=== PATIENT | male | born 1960 | race Caucasian/White ===

== ENCOUNTER 2021-11-03 15:06 | Emergency (ER) | payer OTHER ==
[~2021-11-03] VITALS: Ht 177.8 cm; Wt 77.0 kg
[2021-11-03 18:04] LABS: URINE BILIRUBIN - DIPSTICK NEGATIVE (NEGATIVE); URINE BLOOD DIPSTICK LARGE (NEGATIVE); URINE COLOR BROWN; URINE GLUCOSE - DIPSTICK NEGATIVE (NEGATIVE); URINE KETONE NEGATIVE (NEGATIVE); URINE LEUK ESTERASE NEGATIVE (NEGATIVE); URINE PROTEIN - DIPSTICK TRACE mg/dL (NEG-TRACE); URINE SPECIFIC GRAVITY >=1.030; URINE UROBILINOGEN - DIPSTICK 0.2 E.U./dL (0.2)
[2021-11-03 18:05] LABS: URINE NITRITE - DIPSTICK NEGATIVE (Negative)
[2021-11-03 18:11] LABS: URINE RBC >100 RBC/hpf (0-5)
[2021-11-03 19:04] LABS: HEMATOCRIT 47.5 % (39.0-50.0); HEMOGLOBIN 15.9 g/dl (14.0-18.0); IMMATURE GRANULOCYTES 0.2 % (0.0-5.0); MEAN CORPUSCULAR HGB 33.2 pG CALC (26.0-32.0); MEAN CORPUSCULAR HGB CONC 33.5 g/dL CAL (32.0-36.0); NEUT# 2.81 thou/uL (1.82-7.42); RED BLOOD COUNT 4.79 mill/uL (4.70-6.10); RED CELL DISTRI WIDTH 12.8 % (11.5-15.5)
[2021-11-03 19:05] LABS: MEAN CELL VOLUME 99.2 fL CALC (80.0-100.0)
[2021-11-03 19:19] LABS: ALBUMIN 4.6 g/dL (3.2-5.0); ALKALINE PHOSPHATASE 82 u/l (38-126); ANION GAP 11 (6-22 (CALC)); BILIRUBIN, TOTAL 0.5 mg/dL (0.0-1.4); BUN 17 mg/dL (8-23); BUN/CREATININE RATIO 13 (12-20 (CALC)); CARBON DIOXIDE 27 mmol/l (22-30); CHLORIDE 105 mmol/l (95-108); CREATININE 1.2 mg/dL (0.7-1.3); GFR > 60 ML/MIN (>=60 (CALC)); GFR FOR AFR.AMER. > 60 ML/MIN (>=60 (CALC)); POTASSIUM 4.6 mmol/l (3.5-5.1); SGOT/AST 28 u/l (19-48); SODIUM 139 mmol/l (137-146); TOTAL PROTEIN 8.3 g/dL (6.3-8.2)
[2021-11-03 20:55] VITALS: BP 135/82
== END 2021-11-03 20:55 | disposition designated cancer center or children's hospital (05) | DRG 700 ==
LOC: ED 15:06
PROVIDERS: Emergency Medicine; Family Medicine
DX: N32.89 Other specified disorders of bladder (principal); R31.9 Hematuria, unspecified; I10 Essential (primary) hypertension; I25.2 Old myocardial infarction; B19.20 Unspecified viral hepatitis C without hepatic coma; Z21 Asymptomatic human immunodeficiency virus [HIV] infection status
CPT/HCPCS: Q9967

== ENCOUNTER 2021-12-22 12:58 | Emergency (ER) | payer OTHER ==
[~2021-12-22] VITALS: Ht 177.8 cm; Wt 84.0 kg
[2021-12-22 14:30] VITALS: BP 158/82
[2021-12-22 14:45] LABS: MEAN CORPUSCULAR HGB 31.4 pG CALC (26.0-32.0); MEAN CORPUSCULAR HGB CONC 33.8 g/dL CAL (32.0-36.0); NEUT# 3.57 thou/uL (1.82-7.42); RED BLOOD COUNT 2.39 mill/uL (4.70-6.10); RED CELL DISTRI WIDTH 12.1 % (11.5-15.5)
[2021-12-22 14:54] LABS: URINE BILIRUBIN - DIPSTICK NEGATIVE (NEGATIVE); URINE BLOOD DIPSTICK LARGE (NEGATIVE); URINE GLUCOSE - DIPSTICK NEGATIVE (NEGATIVE); URINE KETONE 15 mg/dL (NEGATIVE); URINE PROTEIN - DIPSTICK >=300 mg/dL (NEG-TRACE); URINE SPECIFIC GRAVITY 1.015
[2021-12-22 14:55] LABS: URINE COLOR RED; URINE LEUK ESTERASE SMALL (NEGATIVE); URINE NITRITE - DIPSTICK POSITIVE (Negative); URINE RBC TNTC RBC/hpf (0-5); URINE WBC 0-2 WBC/hpf (0-5)
[2021-12-22 14:56] LABS: ALBUMIN 3.8 g/dL (3.2-5.0); ALKALINE PHOSPHATASE 80 u/l (38-126); BILIRUBIN, TOTAL 0.7 mg/dL (0.0-1.4); BUN 12 mg/dL (8-23); BUN/CREATININE RATIO 9 (12-20 (CALC)); CREATININE 1.4 mg/dL (0.7-1.3); GFR 51 ML/MIN (>=60 (CALC)); GFR FOR AFR.AMER. > 60 ML/MIN (>=60 (CALC)); LIPASE 57 u/l (23-300); POTASSIUM 4.3 mmol/l (3.5-5.1); SGOT/AST 29 u/l (19-48); TOTAL PROTEIN 6.9 g/dL (6.3-8.2)
[2021-12-22 15:04] LABS: ANION GAP 14 (6-22 (CALC)); CARBON DIOXIDE 20 mmol/l (22-30); CHLORIDE 90 mmol/l (95-108); SODIUM 120 mmol/l (137-146)
[2021-12-22 15:05] LABS: HEMATOCRIT 22.2 % (39.0-50.0); HEMOGLOBIN 7.5 g/dl (14.0-18.0); MEAN CELL VOLUME 92.9 fL CALC (80.0-100.0)
[2021-12-22 16:00] VITALS: BP 172/91
[2021-12-22 16:30] VITALS: BP 159/85
[2021-12-22 16:46] VITALS: BP 171/96
[2021-12-22 17:01] VITALS: BP 172/91
[2021-12-22 17:16] VITALS: BP 188/96
== END 2021-12-22 17:45 | disposition short-term general hospital (02) | DRG 699 ==
LOC: ED 12:58
PROVIDERS: Family Medicine
PROC: 0T9B70Z Drainage of Bladder with Drainage Device, Via Natural or Artificial Opening (ICD-10-PCS; principal; 2021-12-22)
DX: N32.9 Bladder disorder, unspecified (principal); D64.9 Anemia, unspecified; R91.8 Other nonspecific abnormal finding of lung field; R31.0 Gross hematuria; E87.1 Hypo-osmolality and hyponatremia; I10 Essential (primary) hypertension; I25.2 Old myocardial infarction; B19.20 Unspecified viral hepatitis C without hepatic coma; Z21 Asymptomatic human immunodeficiency virus [HIV] infection status
CPT/HCPCS: Q9967

== ENCOUNTER 2022-01-07 16:29 | Emergency (ER) | payer OTHER ==
[~2022-01-07] VITALS: Ht 177.8 cm; Wt 95.0 kg
[2022-01-07] VITALS (8 sets, daily range): BP systolic 111–160; BP diastolic 70–94
[2022-01-07] MEDS ORDERED: PYRIDIUM200 MG PO ×2 (17:16→19:56)
[2022-01-07] MEDS ORDERED: TAB-A-VITE W/1 COMBO (17:17)
[2022-01-07] MEDS ORDERED: LAMIVUDINE300 MG PO ×2 (17:17→17:24)
[2022-01-07] MEDS ORDERED: TENOFOVIR DISO300 MG (17:18)
[2022-01-07] MEDS ORDERED: TIVICAY50 MG PO (17:18)
[2022-01-07] MEDS ORDERED: ALPRAZOLAM0.25 MG PO (17:19)
[2022-01-07] MEDS ORDERED: SENNA-TABS8.6 MG PO (17:19)
[2022-01-07] MEDS ORDERED: ASPIRIN81 MG PO (17:23)
[2022-01-07] MEDS ORDERED: OXYCODONE5 M1 PO (17:23)
[2022-01-07 17:33] LABS: URINE BILIRUBIN - DIPSTICK NEGATIVE (NEGATIVE); URINE BLOOD DIPSTICK LARGE (NEGATIVE); URINE COLOR ORANGE; URINE GLUCOSE - DIPSTICK NEGATIVE (NEGATIVE); URINE KETONE NEGATIVE (NEGATIVE); URINE LEUK ESTERASE TRACE (NEGATIVE); URINE PROTEIN - DIPSTICK 30 mg/dL (NEG-TRACE); URINE SPECIFIC GRAVITY 1.015
[2022-01-07 17:42] LABS: URINE NITRITE - DIPSTICK POSITIVE (Negative)
[2022-01-07 17:56] LABS: URINE BACTERIA RARE hpf
[2022-01-07] MEDS ORDERED: KEFLEX500 MG PO (19:56)
== END 2022-01-07 20:41 | disposition home or self-care (01) | DRG 690 ==
LOC: ED 16:29
PROVIDERS: Nurse Practitioner
DX: N39.0 Urinary tract infection, site not specified (principal); C78.00 Secondary malignant neoplasm of unspecified lung; C67.9 Malignant neoplasm of bladder, unspecified; I10 Essential (primary) hypertension; I25.2 Old myocardial infarction; B19.20 Unspecified viral hepatitis C without hepatic coma; Z21 Asymptomatic human immunodeficiency virus [HIV] infection status